=== PATIENT | female | born 1990 | race Caucasian/White ===

== ENCOUNTER 2017-08-11 17:09 | Emergency (ER) | payer SELFPAY, OTHER | END 2017-08-12 03:55 | disposition left against medical advice (07) | LOC: FTE 17:09 | DX: Z53.21 Procedure and treatment not carried out due to patient leaving prior to being seen by health care provider (principal) ==

== ENCOUNTER 2018-10-13 17:47 | Emergency (ER) | payer SELFPAY, OTHER | END 2018-10-13 21:01 | disposition left against medical advice (07) | LOC: E/R 17:47 | DX: Z53.21 Procedure and treatment not carried out due to patient leaving prior to being seen by health care provider (principal) | CPT/HCPCS: 93005 ==